=== PATIENT | female | born 1950 ===

== ENCOUNTER 2024-12-03 17:36 | Outpatient (REF) | payer OTHER, SELFPAY ==
[2024-12-03 21:07] LABS: HCT 43.2 % (36.0-46.0); HGB 14.3 g/dL (11.2-15.7); MCH 30.4 pg (27.0-33.0); MCHC 33.1 % (32.0-36.0); MCV 92 fL (80-95); MPV 11.6 fL (8.0-11.0); Platelet Count 205 10^3/uL (130-400); RBC 4.71 10^6/uL (3.93-5.22); RDW 13.1 % (11.7-14.6); RDW-SD 44.3 fL; WBC 5.74 10^3/uL (4.4-10.8)
[2024-12-03 21:12] LABS: Anion Gap 9.1 mmol/L (3-11); BUN 19 mg/dL (7-18); CO2 30.9 mmol/L (21.0-32.0); CREATININE 0.8 mg/dL (0.55-1.02); Calcium 9.3 mg/dL (8.5-10.1); Chloride 102 mmol/L (98-107); Estimated GFR 77.27 (mL/min/1.73m2); Glucose 89 mg/dL (74-106); Sodium 142 mmol/L (136-145)
== END 2024-12-03 17:37 | disposition home or self-care (01) ==
LOC: NCHCN 17:36
PROVIDERS: Visit Provider Nurse Practitioner Family
DX: Z00.00 Encounter for general adult medical examination without abnormal findings (principal)
CPT/HCPCS: 80048; 85027